=== PATIENT | male | born 1970 | race Caucasian/White ===

== ENCOUNTER → 2018-02-03 | Outpatient (CLI) | payer BC ==
--- NOTE | 2018-02-03 22:43 | CONS ---
CONSULTATION REASON FOR CONSULTATION: Sleep apnea. HISTORY: Chris is 47 with known history of obstructive sleep apnea. The patient was diagnosed having ABA back in 2011. He has AHI of 75.3, and was being treated with CPAP with a pressure of 11 cm of water. He has an older generation ResMed S9 series which is on and off malfunctioning and he is interested in updating his CPAP unit and is interested in one of the newer generation ResMed. His treatment has been extremely successful. While on treatment he has no snoring, no apneas, no choking, no gasping. Occasional grinding of the teeth. No anxiety or panic attacks. No hypersomnia or sleepiness during the day. He goes to bed around 9 p.m., wakes up at 4:20 a.m. in the morning, and he is averaging more than 7 hours of CPAP use every night. He has no recent weight gain or weight loss. No sleep paralysis. No hallucinations. No cataplexy. No restlessness of the lower extremities. PAST MEDICAL HISTORY: 1. ABA, details as discussed above. 2. Paroxysmal atrial fibrillation, currently in sinus. 3. Hyperlipidemia. 4. Obesity. PAST SURGICAL HISTORY: None. DRUG ALLERGIES: Not known. OUTPATIENT MEDICATIONS: Includes Xarelto, Toprol, lisinopril, Zocor, allopurinol. FAMILY HISTORY: Noncontributory. Negative for sleep apnea. SOCIAL HISTORY: Nonsmoker. No history of alcohol. No history of IV drugs. REVIEW OF SYSTEMS: A 12-point review of system was done. Positive findings are as mentioned above in the history of present illness. Of significance is the absence of snoring while on CPAP therapy. No insomnia, no choking or gasping sensation, no nocturia. No dry mouth. No anxiety or panic attacks. No palpitations. No heartburn. No chest pain. No dizziness and no altered mentation. No motor vehicle accident because of feeling drowsy or sleepy. His current Clarkson score is 10. IMPRESSION: 1. Severe symptomatic obstructive sleep apnea with an apnea-hypopnea index of 75.3. The patient was being treated with a CPAP pressure of 11. Treatment has been successful and the patient is seeking a new CPAP unit. 2. Obesity. Weight has been stable. 3. Paroxysmal atrial fibrillation. 4. Hypertension. 5. Hyperlipidemia. PLAN: The patient is in need of a new CPAP unit. I do not see the need for repeating another sleep study on this patient. I am going to order CPAP unit at the pressure of 11 cm of water. The patient will be given a AirFit F20 mask interface. Encouraged weight loss and implementing sleep hygiene measures. See me back in 30 to 90 days after obtaining a new CPAP unit. HARPER / EDUARDON: [id number] /
== END ==
LOC: SLEEP 13:16
PROVIDERS: ATTEND Internal Medicine Critical Care Medicine
DX: G47.33 Obstructive sleep apnea (adult) (pediatric) (principal); E66.9 Obesity, unspecified; I48.0 Paroxysmal atrial fibrillation; I10 Essential (primary) hypertension; E78.5 Hyperlipidemia, unspecified; Z99.89 Dependence on other enabling machines and devices; Z79.899 Other long term (current) drug therapy
CPT/HCPCS: 99211

== ENCOUNTER → 2018-04-21 | Outpatient (CLI) | payer BC ==
--- NOTE | 2018-04-21 17:22 | PN ---
PROGRESS NOTE Chris is doing well and coming in for CPAP compliance data as the patient was given a new CPAP unit. The patient is known to have severe ABA. The patient's baseline AHI was 75. The new CPAP is a Resmet air sense RO which is set at a pressure of 10 cm of water. He is loving his machine. He is feeling much improved and he is awake and alert during the day without any hypersomnia or sleepiness. I checked his compliance data. The patient has been using his CPAP machine an average of 8 hours per night. His AHI while on treatment is down to 0.8, leak factor is 24 L/minute and his CPAP use for more than 4 hours is 100%. He is doing extremely well. Dayton score is down to 7. His weight is stable. No other specific complaints for now. He is using the Amaral FX nose pillows. REVIEW OF SYSTEMS: 12-point review of system was done. Positive findings are mentioned above in history of present illness. PHYSICAL EXAMINATION: BP is 134/81, pulse 58, respirations 16, weight is 399. Temperature 98, Dayton score is 7. Saturation 95% on room air. GENERAL APPEARANCE: Calm, comfortable. Head is atraumatic, normocephalic. NECK: Supple. There is no JVD. No goiter or neck masses. Mallampati class IV. LUNGS: Clear to auscultation. HEART: Sounds regular rate and rhythm. Normal S1, S2. No S3, S4. No murmurs. ABDOMEN: Soft, nontender. No organomegaly. EXTREMITIES: No edema. No cyanosis or clubbing. NEUROLOGIC: The patient is alert and oriented x3. There is no focal neurological deficits. PSYCHIATRIC: Negative for anxiety or depression. IMPRESSION: Severe obstructive sleep apnea with an AHI of 75, currently undergoing successful CPAP therapy at a pressure of 7 and the patient has been extremely well treated and is very much compliant. PLAN: 1. Continue CPAP therapy at same level of pressure. 2. Encourage weight loss. 3. Continue the Amaral FX nose mask. 4. See me back in a few year time in follow up, earlier if needed. MMODL / IJN: [id number] /
== END ==
LOC: SLEEP 16:06
PROVIDERS: ATTEND Internal Medicine Critical Care Medicine
DX: G47.33 Obstructive sleep apnea (adult) (pediatric) (principal); Z99.89 Dependence on other enabling machines and devices

== ENCOUNTER → 2019-07-27 | Outpatient (CLI) | payer BC | END | disposition home or self-care (01) | LOC: LABWHC1 10:36 | PROVIDERS: ATTEND Nurse Practitioner Adult Health | DX: R00.1 Bradycardia, unspecified (principal) | CPT/HCPCS: 36415; 84443 ==

== ENCOUNTER 2023-02-12 10:55 | Day surgery (SDC) | payer BC ==
[2023-02-10 13:28] VITALS: BMI 51.2
[~2023-02-12 10:55] MED LIST: LACTATED RINGERS 1,000 ML IV SCH; LIDOCAINE 1% (10MG/ML) FOR IV START INTRADERMA PRN
[2023-02-12] MEDS ORDERED: PROPOFOL 10 MG/ML 20 ML VIAL IV ONE (13:06)
[2023-02-12] MEDS ORDERED: LIDOCAINE 1% INJ 10MG/ML (20 ML MDV) ONE (13:06)
[2023-02-12 13:10] VITALS: TEMP 97.6
--- NOTE | 2023-02-12 13:31 | P.PCN ---
Date of Procedure: 02/12/23 Procedure(s) Performed: BRIEF HISTORY: Patient is a 52-year-old pleasant white male scheduled for an elective colonoscopy as a part of screening for colon cancer. PROCEDURE PERFORMED: Colonoscopy snare polypectomy. PREOPERATIVE DIAGNOSIS: Screening for colon cancer. IV sedation per Anesthesia. PROCEDURE: After informed consent was obtained, the patient, was brought into the endoscopy unit. IV sedation was administered by Anesthesia under continuous monitoring. Digital rectal examination was normal. Initially the Olympus CF-160 flexible video colonoscope was then inserted in the rectum, gradually advanced into the cecum without any difficulty. Careful examination was performed as the scope was gradually being withdrawn. Ileocecal valve and the appendiceal orifice were visualized and appeared normal. Prep was excellent. Mucosa of the cecum, ascending colon, transverse colon, descending colon, appeared normal. In the sigmoid colon there was a 1 cm polyp removed by snare polypectomy. In the rectum there was a 3 mm polyp removed by snare polypectomy. Rest of the sigmoid colon, and rectum appeared normal. Scattered similar diverticulosis. Retroflexion was performed in the rectum and no lesions were seen. The patient tolerated the procedure well. IMPRESSION: 1 cm sigmoid; polyp status post polypectomy 3 mm rectal polyp status post polypectomy Scattered sigmoidal diverticulosis RECOMMENDATIONS: Findings of this examination were discussed with the patient as well as his family. He was advised to follow with the biopsy results. If the biopsy result adenoma he can have a repeat study in 3 years..
[2023-02-12 14:12] VITALS: BP 111/75; PULSE 89; RESP 15
== END 2023-02-12 14:10 | disposition home or self-care (01) ==
LOC: ORWHC2ENDO 10:55
PROVIDERS: ATTEND Internal Medicine Gastroenterology
DX: Z12.11 Encounter for screening for malignant neoplasm of colon (principal); D12.5 Benign neoplasm of sigmoid colon; K57.30 Diverticulosis of large intestine without perforation or abscess without bleeding; I10 Essential (primary) hypertension; E78.5 Hyperlipidemia, unspecified; I48.91 Unspecified atrial fibrillation; J44.9 Chronic obstructive pulmonary disease, unspecified; G47.33 Obstructive sleep apnea (adult) (pediatric); R19.5 Other fecal abnormalities; Z79.51 Long term (current) use of inhaled steroids; Z79.899 Other long term (current) drug therapy
CPT/HCPCS: 45385 ×2; 88305; J2001; J2704